=== PATIENT | male | born 1960 | race Caucasian/White ===

== ENCOUNTER 2024-06-30 11:44 | Outpatient (CLI) | payer OTHER ==
[2024-06-30 13:03] LABS: #Basophils Less than 0.03 10x3/uL (0.0-0.2); %Eosinophils 2.4 % (0.0-10.0); %Lymphocytes 34.4 % (21.0-51.0); %Monocytes 8.9 % (0.0-10.0); Hematocrit 47.6 % (42.0-52.0); Mean Corpuscular HGB CONC 33.6 g/dL (32.0-36.0); Mean Corpuscular Hemoglobin 31.1 pg (27.0-31.0); Mean Corpuscular Volume 92.4 fL (78.0-98.0); Mean Platelet Volume 8.6 fL (7.4-10.4); Platelet Count 204 10x3/uL (130-400); RBC Distribution Width 12.7 % (11.5-14.5); Red Blood Cell (RBC) Count 5.15 mill/uL (4.70-6.10)
== END 2024-06-30 11:45 | disposition home or self-care (01) ==
LOC: LABBT 11:44
PROVIDERS: ATTEND Orthopaedic Surgery
DX: Z01.818 Encounter for other preprocedural examination (principal)
CPT/HCPCS: 85025; 93005; 93010

== ENCOUNTER 2024-07-06 07:06 | Day surgery (SDC) | payer MEDICARE ==
[2024-06-30 12:08] VITALS: BMI 24.4
[2024-07-06] MEDS ORDERED: PROPOFOL 20 ML ONE (09:25)
[2024-07-06] MEDS ORDERED: Ondansetron PF 4 MG/2 ML Vial ONE (09:25)
[2024-07-06] MEDS ORDERED: Dexamethasone 20 MG/5 ML VIAL ONE (09:25)
[2024-07-06] MEDS ORDERED: fentaNYL 50 mcg/mL 1 mL Vial ONE ×2 (09:26→10:29)
[2024-07-06] MEDS ORDERED: Midazolam HCl 2 mg/2 ml Vial ONE (09:26)
[2024-07-06] MEDS ORDERED: CEFAZOLIN 2 GM VIAL ONE (10:00)
[2024-07-06] MEDS ORDERED: Sodium Chloride 0.9% 250 ML 250 ML ONE (10:21)
[2024-07-06] MEDS ORDERED: Bacitracin Zinc Ointment 30 gm TUBE ONE (10:35)
[2024-07-06] MEDS ORDERED: Bupivacaine PF 0.5% 30 ML VIAL ONE (14:37)
== END 2024-07-06 13:21 | disposition home or self-care (01) ==
LOC: SDC 07:06
PROVIDERS: ATTEND Orthopaedic Surgery
PROC: 01N50ZZ Release Median Nerve, Open Approach (ICD-10-PCS; principal; 2024-07-06)
DX: G56.01 Carpal tunnel syndrome, right upper limb (principal); M19.041 Primary osteoarthritis, right hand; M19.031 Primary osteoarthritis, right wrist; M18.11 Unilateral primary osteoarthritis of first carpometacarpal joint, right hand; N40.0 Benign prostatic hyperplasia without lower urinary tract symptoms; Z98.52 Vasectomy status; Z91.018 Allergy to other foods; Z79.899 Other long term (current) drug therapy
CPT/HCPCS: 64721; J0665; J1100; J2250; J2405; J2704; J3010; J7050; A6223